=== PATIENT | female | born 1970 | race Caucasian/White ===

== ENCOUNTER → 2019-12-09 10:50 | Outpatient (BNVA) | payer OTHER, SELFPAY | PROVIDERS: Family Provider Nurse Practitioner Family; PCP Nurse Practitioner Family; Visit Provider Family Medicine | DX: J06.9 Acute upper respiratory infection, unspecified (principal); J45.20 Mild intermittent asthma, uncomplicated; I10 Essential (primary) hypertension; J45.901 Unspecified asthma with (acute) exacerbation; Z11.59 Encounter for screening for other viral diseases | CPT/HCPCS: 87635 ==

== ENCOUNTER → 2023-08-19 13:49 | Outpatient (BNVA) | payer MEDICAID, SELFPAY | PROVIDERS: Family Provider Nurse Practitioner Family; Visit Provider Emergency Medicine | DX: N39.0 Urinary tract infection, site not specified (principal); J00 Acute nasopharyngitis [common cold]; J40 Bronchitis, not specified as acute or chronic | CPT/HCPCS: 81000; 87077; 87086; 87184 ==